=== PATIENT | male | born 1940 | race Caucasian/White ===

== ENCOUNTER 2024-03-30 20:45 | Observation (INO) | payer MEDICARE ==
[2024-03-30 20:58] VITALS: TEMP 98
--- NOTE | 2024-03-30 21:54 | ED ---
Dizziness HPI - General Chief Complaint: Dizziness Stated Complaint: Dizzy NVD Time Seen by Provider: 03/30/24 21:09 Source: patient, EMS Mode of arrival: EMS Limitations: no limitations - History of Present Illness Initial Comments: This patient is an 83-year-old man who comes here as a transfer from [facility]. The patient states he had gone there to have evaluation for vertigo and vomiting. The patient states his symptoms had come on yesterday but he states he was able to get to sleep when he woke up today the symptoms were worse. He states that he has severe spinning when he gets up and walks. This leads to nausea and vomiting. He feels better if he is remaining still. He denies any injury. He denies other neurologic symptoms. He went to the other hospital where he had CT of the brain that was reported as negative. The patient received a dose of Zofran, Antivert and Ativan with some relief of symptoms. Labs from the other hospital revealed glucose of 215, otherwise unremarkable. MD Complaint: dizziness, difficulty walking Onset/Timin -: days(s) Description: "room spinning", difficulty walking, nausea History of Same: No History of Trauma: No Severity: severe Improves With: remaining still Worsens With: movement Associated Symptoms: denies other symptoms - Related Data Home Medications Medication Instructions Recorded Confirmed Albuterol Nebulized [Ventolin 2.5 mg INHALATION RT-Q4H PRN 03/31/24 03/31/24 Nebulized] Allergies Allergy/AdvReac Type Severity Reaction Status Date / Time No Known Allergies Allergy Verified 03/31/24 07:05 Review of Systems ROS Statement: Those systems with pertinent positive or pertinent negative responses have been documented in the HPI. ROS Other: All systems not noted in ROS Statement are negative. Constitutional: Denies: fever, chills, weakness Eyes: Denies: vision change Respiratory: Denies: cough, dyspnea Cardiovascular: Denies: chest pain, palpitations, edema, syncope Gastrointestinal: Reports: as per HPI, nausea, vomiting. Denies: abdominal pain, diarrhea, hematemesis, melena, hematochezia Genitourinary: Denies: dysuria, hematuria Musculoskeletal: Denies: back pain Skin: Denies: rash Neurological: Reports: vertigo. Denies: headache, weakness, numbness, confusion Past Medical History Past Medical History: No Reported History History of Any Multi-Drug Resistant Organisms: None Reported Past Surgical History: No Surgical Hx Reported Past Psychological History: Unable to Obtain Smoking Status: Former smoker Past Alcohol Use History: None Reported Past Drug Use History: None Reported General Exam Limitations: no limitations General appearance: alert, in no apparent distress Head exam: Present: atraumatic, normocephalic Eye exam: Present: normal appearance. Absent: scleral icterus, conjunctival injection ENT exam: Present: normal oropharynx, TM's normal bilaterally, normal external ear exam Neck exam: Present: normal inspection, full ROM. Absent: tenderness Respiratory exam: Present: normal lung sounds bilaterally. Absent: respiratory distress, wheezes, rales, rhonchi, stridor, accessory muscle use Cardiovascular Exam: Present: regular rate, normal rhythm, normal heart sounds. Absent: systolic murmur, diastolic murmur, rubs, gallop GI/Abdominal exam: Present: soft. Absent: distended, tenderness, guarding, rebound, rigid, mass Extremities exam: Present: normal inspection, normal capillary refill. Absent: pedal edema, calf tenderness Back exam: Present: normal inspection. Absent: CVA tenderness (R), CVA tenderness (L) Neurological exam: Present: alert, oriented X3, CN II-XII intact. Absent: motor sensory deficit Skin exam: Present: warm, dry, intact, normal color. Absent: rash Course Vital Signs 03/30/24 03/30/24 03/30/24 20:53 22:32 23:40 Temperature 98.0 F Pulse Rate 68 65 59 L Respiratory 18 16 16 Rate Blood Pressure 128/41 153/76 141/71 O2 Sat by Pulse 92 L 92 L 95 Oximetry 03/31/24 03/31/24 03/31/24 01:00 04:00 06:41 Temperature Pulse Rate 57 L 55 L 56 L Respiratory 18 18 16 Rate Blood Pressure 142/70 150/79 O2 Sat by Pulse 92 L 98 95 Oximetry 03/31/24 03/31/24 03/31/24 07:27 08:20 08:46 Temperature Pulse Rate 52 L 64 Respiratory 18 18 Rate Blood Pressure 150/79 137/63 O2 Sat by Pulse 97 97 96 Oximetry 03/31/24 03/31/24 03/31/24 09:00 10:00 11:00 Temperature Pulse Rate 56 L 56 L 56 L Respiratory 18 16 16 Rate Blood Pressure 134/76 128/68 133/65 O2 Sat by Pulse 96 99 95 Oximetry 03/31/24 14:39 Temperature Pulse Rate 58 L Respiratory 18 Rate Blood Pressure 122/72 O2 Sat by Pulse 98 Oximetry Medical Decision Making - Medical Decision Making Was pt. sent in by a medical professional or institution (SUKUMAR Johnson, RISK CONTROL FIELD REPRESENTATIVE, urgent care, hospital, or senior care...) When possible be specific @ -[No] Did you speak to anyone other than the patient for history (EMS, parent, family, police, friend...)? What history was obtained from this source @ -[No] Did you review nursing and triage notes (agree or disagree)? Why? @ -[I reviewed and agree with nursing and triage notes] Were old charts reviewed (outside hosp., previous admission, EMS record, old EKG, old radiological studies, urgent care reports/EKG's, senior care records)? Report findings @ -[No old charts were reviewed] Differential Diagnosis (chest pain, altered mental status, abdominal pain women, abdominal pain men, vaginal bleeding, weakness, fever, dyspnea, syncope, headache, dizziness, GI bleed, back pain, seizure, CVA, palpatations, mental health, musculoskeletal)? @ -[Differential Dizziness: Benign paroxysmal positional Vertigo, Meniere's disease, otitis media, acoustic neuroma, vertebrobasilar insufficiency, cerebellar stroke, encephalitis, hypovolemic, arrhythmia, coronary artery syndrome, anemia, this is not meant to be an all-inclusive list EKG interpreted by me (3pts min.). @ -[As above] X-rays interpreted by me (1pt min.). @ -[None done] CT interpreted by me (1pt min.). @ -[None done] U/S interpreted by me (1pt. min.). @ -[None done] What testing was considered but not performed or refused? (CT, X-rays, U/S, labs)? Why? @ -[None] What meds were considered but not given or refused? Why? @ -[None] Did you discuss the management of the patient with other professionals (professionals i.e. SUKUMAR Johnson, RISK CONTROL FIELD REPRESENTATIVE, lab, RT, psych nurse, child protective services social worker, security police, teacher, surveillance officer, caser in)? Give summary @ -[Case discussed with admitting physician and treatment recommendations incorporated Was smoking cessation discussed for >3mins.? @ -[No] Was critical care preformed (if so, how long)? @ -[No] Were there social determinants of health that impacted care today? How? (Homelessness, low income, unemployed, alcoholism, drug addiction, transportation, low edu. Level, literacy, decrease access to med. care, retirement, rehab)? @ -[No] Was there de-escalation of care discussed even if they declined (Discuss DNR or withdrawal of care, Hospice)? DNR status @ -[No] What co-morbidities impacted this encounter? (DM, HTN, Smoking, COPD, CAD, Cancer, CVA, ARF, Chemo, Hep., AIDS, mental health diagnosis, sleep apnea, morbid obesity)? @ -[None] Was patient admitted / discharged? Hospital course, mention meds given and route, prescriptions, significant lab abnormalities, going to OR and other pertinent info. @ -[Patient is an 83-year-old man here with vertiginous symptoms that do appear peripheral and do not have central signs or symptoms. Patient will be admitted to have neurology consultation. Symptoms have improved Undiagnosed new problem with uncertain prognosis? @ -[No] Drug Therapy requiring intensive monitoring for toxicity (Heparin, Nitro, Insulin, Cardizem)? @ -[No] Were any procedures done? @ -[No] Diagnosis/symptom? @ -[Acute on chronic vertigo Acute, or Chronic, or Acute on Chronic? @ -[Acute on chronic Uncomplicated (without systemic symptoms) or Complicated (systemic symptoms)? @ -[Uncomplicated Side effects of treatment? @ -[No] Exacerbation, Progression, or Severe Exacerbation? @ -[No] Poses a threat to life or bodily function? How? (Chest pain, [place], [place], pneumonia, PE, COPD, DKA, ARF, appy, cholecystitis, CVA, Diverticulitis, Homicidal, Suicidal, threat to staff... and all critical care pts) @ -[Unlikely Disposition Clinical Impression: Vertigo Disposition: ADMITTED IP TO THIS [facility] Condition: Good Is patient prescribed a controlled substance at d/c from ED?: No
[2024-03-30] MEDS ORDERED: NALOXONE 0.4 MG/ML 1 ML VIAL IV PRN (22:59)
[2024-03-30] MEDS ORDERED: ONDANSETRON 4 MG/2 ML VIAL IVP PRN (22:59)
[2024-03-30] MEDS: SODIUM CHLORIDE 0.9% 1,000 ML IV SCH (23:38)
[2024-03-30] MEDS: MECLIZINE 12.5 MG TAB PO STA (23:38)
[2024-03-31] MEDS ORDERED: MECLIZINE 12.5 MG TAB PO PRN (12:59)
--- NOTE | 2024-03-31 12:59 | P.CNNES ---
History of Present Illness Consult date: 03/31/24 Requesting physician: Nestor Woody Reason for Consult: vertigo History of Present Illness: This is an 83-year-old gentleman who was transferred from [facility] because of dizziness and had episode of vomiting. He stated the patient dizziness began yesterday at 1pm. He felt dizziness was with movement. Denies any focal weakness, numbness, visual disturbance, ringing of the ears. Denies any falls. Denies any recent sickness. It seems that he had a CT of the head there which was unremarkable for any acute process. Patient received Zofran and Antivert and Ativan with some relief of symptoms. Seems that he was transferred to our facility for ENT evaluation according to the patient's nurse. Currently patient states that his dizziness has resolved and he feels back to baseline. He denies any history of stroke in the past. Review of Systems The positive and negative as per HPI. Past Medical History Past Medical History: Hyperlipidemia, Hypertension History of Any Multi-Drug Resistant Organisms: None Reported Past Surgical History: Back Surgery Additional Past Surgical History / Comment(s): right ear surgery Past Psychological History: Anxiety, Depression Smoking Status: Former smoker Past Alcohol Use History: None Reported Past Drug Use History: None Reported Medications and Allergies Home Medications Medication Instructions Recorded Confirmed Type Albuterol Nebulized [Ventolin 2.5 mg INHALATION RT-Q4H PRN 03/31/24 03/31/24 History Nebulized] Allergies Allergy/AdvReac Type Severity Reaction Status Date / Time No Known Allergies Allergy Verified 03/31/24 07:05 Physical Examination - Vital Signs Vital Signs: Vital Signs Temp Pulse Resp BP Pulse Ox 03/31/24 11:00 56 L 16 133/65 95 03/31/24 10:00 56 L 16 128/68 99 03/31/24 09:00 56 L 18 134/76 96 03/31/24 08:46 64 18 137/63 96 03/31/24 08:20 97 03/31/24 07:27 52 L 18 150/79 97 03/31/24 06:41 56 L 16 150/79 95 03/31/24 04:00 55 L 18 142/70 98 03/31/24 01:00 57 L 18 92 L 03/30/24 23:40 59 L 16 141/71 95 03/30/24 22:32 65 16 153/76 92 L 03/30/24 20:53 98.0 F 68 18 128/41 92 L Intake and Output 03/30/24 03/31/24 03/31/24 22:59 06:59 14:59 Other: Weight 63.503 kg GENERAL: The patient is lying in bed and is not in acute distress. NEUROLOGICAL: Higher mental function: The patient is awake, alert, oriented to self, place and time. Patient is following commands. No aphasia and no neglect. Cranial nerves: The pupils are round, equal and reactive to light and accommodation. Visual spicer are full to confrontation throughout. Extraocular movement is intact no nystagmus is noted. Facial sensation is normal to touch throughout. The facial strength is normal throughout. Hearing is mildly to moderately decreased bilaterally to hand rub. Tongue is midline and moved [id number] without any difficulty. No dysarthria is noted. Shoulder shrug is normal bilaterally. Motor: The strength is 5 over 5 throughout. Normal tone and bulk. Cerebellum: Normal finger to nose heel to morris bilaterally. Sensation: Sensation is normal to touch throughout. Plantars are mute bilaterally. Assessment and Plan Assessment: This is an 83-year-old gentleman who was transferred from [facility] because of escalation of care of his vertigo with vomiting episode. He had a CT of the head at the outside hospital which was unremarkable for any acute process. He received meclizine, Ativan and Zofran at the outside hospital and he feels the symptoms has drastically improved and today he feels symptoms is resolved. Acute vertigo likely due to peripheral. Plan: According to the nurse he was transferred in hopes of having ENT evaluating the patient. We do not have ENT as an inpatient and since the patient's symptoms has resolved we will have the patient to follow-up with ENT as an outpatient. Consider vestibular rehab therapy as an outpatient if he continues to have symptoms Patient received meclizine 12.5 mg once in our ED. I started the patient on meclizine 12.5mg 1 tab tid PRN. He is currently on Zofran PRN. Will have patient be evaluated by Physical therapy and if no acute issues then clear from neurological perspective. The plan is discussed with patient and his nurse. Thank you for the consultation. Time with Patient: Greater than 30
[2024-03-31 14:40] VITALS: BP 122/72; PULSE 58; RESP 18
== END 2024-03-31 14:45 | disposition home or self-care (01) ==
LOC: EC 20:45 → 6NMEDSUR 23:01
PROVIDERS: ADMIT Hospitalist; ATTEND Hospitalist
DX: R42 Dizziness and giddiness (principal); R11.2 Nausea with vomiting, unspecified; Z87.891 Personal history of nicotine dependence; R26.2 Difficulty in walking, not elsewhere classified
CPT/HCPCS: 94760; 96360; 96361; 99285